=== PATIENT | female | born 1990 | race Caucasian/White ===

== ENCOUNTER → 2022-04-25 | Outpatient (CLI) | payer OTHER ==
[2022-04-25 18:34] LABS: HCT 33.7 % (37.2-46.3); HGB 10.7 g/dL (12.0-15.0); MCH 30.9 pg (27.0-32.0); MCHC 31.8 g/dL (32.0-37.0); MCV 97.4 fL (80.0-97.0); Mean Platelet Volume 11.2 fL (9.5-12.2); NRBC Per 100 WBC 0 /100 WBCS (0.0-0.0); Platelet Count 273 X 10*3/uL (140-440); RBC 3.46 X 10*6/uL (4.10-5.20); RDW 13.5 % (11.5-14.5); WBC 9.19 X 10*3/uL (4.50-10.00)
== END | disposition home or self-care (01) ==
LOC: LABWHC1 09:42
PROVIDERS: ATTEND Obstetrics & Gynecology Obstetrics
DX: Z36.9 Encounter for antenatal screening, unspecified (principal)
CPT/HCPCS: 36415; 82950; 85027

== ENCOUNTER → 2022-05-08 | Outpatient (CLI) | payer OTHER ==
[2022-05-08 11:53] LABS: Glucose 3 Hour, Gest 104 mg/dL
== END | disposition home or self-care (01) ==
LOC: LABWHC1 07:03
PROVIDERS: ATTEND Obstetrics & Gynecology Obstetrics
DX: O99.810 Abnormal glucose complicating pregnancy (principal); Z3A.00 Weeks of gestation of pregnancy not specified
CPT/HCPCS: 36415; 82951; 82952

== ENCOUNTER 2022-07-14 06:00 | Inpatient (IN) | payer OTHER ==
[2022-07-14] MEDS ORDERED: DINOPROSTONE 10 MG INSERT.ER VAGINAL ONE (16:31)
[2022-07-14] MEDS ORDERED: LACTATED RINGERS 1,000 ML IV SCH (16:45)
--- NOTE | 2022-07-14 17:30 | P.HPOB ---
History of Present Illness H&P Date: 07/14/22 Chief Complaint: IUP at 39-0/7 weeks This is a 32-year-old at 39-0/7 weeks, that presents to labor and delivery for induction of labor. She has been receiving routine care which has been essentially uncomplicated. Patient notes good movement denies con tractions loss of fluid or vaginal bleeding. 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 Her blood type is A+, rubella status non immune, HBsAg negative, RPR is NR. negative M21, negative GBS. Review of Systems Constitutional: Denies chills, Denies fatigue, Denies fever Ears, nose, mouth and throat: Denies headache Cardiovascular: Reports leg edema Respiratory: Denies dyspnea Gastrointestinal: Denies constipation, Denies diarrhea, Denies nausea, Denies vomiting Genitourinary: Reports Past Medical History Past Medical History: No Reported History History of Any Multi-Drug Resistant Organisms: None Reported Past Surgical History: No Surgical Hx Reported Past Anesthesia/Blood Transfusion Reactions: No Reported Reaction Past Psychological History: Depression Smoking Status: Former smoker Past Alcohol Use History: None Reported Past Drug Use History: None Reported - Past Family History Mother Family Medical History: Diabetes Mellitus Medications and Allergies Allergies Allergy/AdvReac Type Severity Reaction Status Date / Time No Known Allergies Allergy Verified 07/14/22 16:30 Exam Osteopathic Statement: *. No significant issues noted on an osteopathic structural exam other than those noted in the History and Physical/Consult. 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 heart tones returned be category 1 and she is yue irregularly. Assessment and Plan (1) Term Current Visit: Yes Status: Acute Code(s): Z34.90 - ENCNTR FOR SUPRVSN OF NORMAL , UNSP, UNSP TRIMESTER SNOMED Code(s): 92260638 Plan: 32-year-old at 39-0/7 weeks that presents for induction of labor. Patient is admitted and Cervidil is placed without difficulty. We'll plan to remove the Cervidil around 5 AM, allow patient to have a late breakfast and start Pitocin. Patient is aware plan of care and all questions are answered. Should patient become uncomfortable she may decide between Stadol/nitrous/epidural for pain control. Should patient have noted cervical change epidural can be offered. Patient will consider.
[2022-07-14 17:31] LABS: Basophils % (A) 0 %; Eosinophils # (A) 0.2 k/uL (0-0.7); Eosinophils % (A) 2 %; HCT 33.5 % (34.0-46.0); HGB 11.5 gm/dL (11.4-16.0); Lymphocytes # (A) 1.9 k/uL (1.0-4.8); Lymphocytes % (A) 19 %; MCHC 34.2 g/dL (31.0-37.0); MCV 90.7 fL (80.0-100.0); Mean Platelet Volume 9.4; Monocytes # (A) 0.5 k/uL (0-1.0); Monocytes % (A) 5 %; Neutrophils # (A) 6.9 k/uL (1.3-7.7); Neutrophils % (A) 70 %; Platelet Count 240 k/uL (150-450); RDW 14.6 % (11.5-15.5); WBC 9.8 k/uL (3.8-10.6)
[2022-07-15] MEDS: BUTORPHANOL 1 MG/ML 1 ML VIAL IV PRN ×3 (01:32→10:10)
[2022-07-15] MEDS ORDERED: LIDOCAINE 0.5% (PF) 5 MG/ML (50 ML SDV) SQ PRN (05:28)
[2022-07-15] MEDS ORDERED: TERBUTALINE 1 MG/ML VIAL SQ PRN (05:28)
[2022-07-15] MEDS ORDERED: OXYTOCIN 30 UNITS/500 ML NS 30 UNIT in SALINE 1 500ML.BAG IV SCH (05:30)
[2022-07-15] MEDS: LACTATED RINGERS 1,000 ML IV SCH ×4 (05:54→18:33)
[2022-07-15] MEDS ORDERED: SODIUM CHLORIDE 0.9% 100 ML BAG ONE (13:21)
[2022-07-15] MEDS ORDERED: ROPIVACAINE 5 MG/ML 20 ML AMPULE ONE (13:21)
[2022-07-15] MEDS ORDERED: fentaNYL (PF) 50 MCG/ML 5 ML AMP ONE (13:21)
[2022-07-15] MEDS ORDERED: ROPIVACAINE 100 MG, fentaNYL (PF). 200 MCG in SODIUM CHLORIDE 0.9% 76 ML EPIDURAL ONE (14:13)
--- NOTE | 2022-07-15 14:13 | P.ANPRN ---
Procedure Note - Anesthesia - Epidural/Spinal Epidural Date of Procedure: 07/15/22 Procedure Start Time: 13:40 Procedure Stop Time: 13:53 Indication: Requested by Surgeon Sedation Type: Awake Preparation: Sterile Prep Position: Sitting Needle Guage: 18 Injectate: Lidocaine 1.5% with epi, negative response Blood Aspirated: No Pain Paresthesia on Injection Noted: No Events: Other (see comment) (OB epidural)
[2022-07-16] MEDS ORDERED: METHYLERGONOVINE 0.2 MG/ML 1 ML AMP IM ONE (00:08)
[2022-07-16] MEDS: BUTORPHANOL 1 MG/ML 1 ML VIAL IV PRN (00:11)
[2022-07-16] MEDS ORDERED: miSOPROStoL 200 MCG TAB PO STA (00:14)
[2022-07-16] MEDS ORDERED: diphenhydrAMINE 50 MG/ML 1 ML VIAL IVP PRN ×2 (00:23)
[2022-07-16] MEDS ORDERED: diphenhydrAMINE 25 MG CAP PO PRN (00:23)
[2022-07-16] MEDS ORDERED: BENZOCAINE/MENTHOL SPRAY 1 GM/SPRAY AEROSOL TOPICAL PRN (00:23)
[2022-07-16] MEDS ORDERED: ZOLPIDEM 5 MG TAB PO PRN (00:23)
[2022-07-16] MEDS ORDERED: SIMETHICONE 80 MG CHEWABLE PO PRN (00:23)
[2022-07-16] MEDS ORDERED: ACETAMINOPHEN TAB 325 MG TAB PO PRN (00:23)
[2022-07-16] MEDS ORDERED: diphenhydrAMINE 50 MG CAP PO PRN (00:23)
[2022-07-16] MEDS ORDERED: HYDROCORTISONE 2.5% RECTAL CREAM 30 GM TUBE RECTAL PRN (00:23)
[2022-07-16] MEDS ORDERED: LANOLIN CREAM 5 GM TUBE TOPICAL PRN (00:23)
--- NOTE | 2022-07-16 00:30 | P.PROBDLV ---
Vaginal Delivery Note - . Vaginal Delivery Note: Findings: Viable female delivered at 0001, weight of 8 lbs. 1 oz., 3660 g, Apgars of 8 and 9 at one and 5 minutes respectively. This is a 32-year-old at 39-0/7 weeks that presents to labor and delivery for induction of labor. Patient was admitted on 07/14 for Cervidil induction of labor. Patient made slow progress through the night eventually the Cervidil was removed around 5 AM with minimal cervical change appreciated. Pitocin augmentation of labor was begun and amniotomy was performed. Patient made slow progress through labor eventually becoming uncomfortable and requesting epidural placement. Patient made progress in labor eventually progressing to complete. Patient was placed in a modified lithotomy position and began pushing. With good maternal effort patient brought the down to a presentation, with additional pushes she delivered the head followed by the anterior/posterior shoulder and body. Spontaneous cry was noted at . The baby was placed on the maternal abdomen. The umbilical cord was doubly clamped and cut. The consent was delivered spontaneously intact with a three- vessel cord being noted. The uterus is noted to be atonic therefore Methergine was given. Bleeding slowed slightly. Cytotec was then placed rectally. Uterus was then noted to be firm and 2 below the umbilicus. On inspection the patient's vaginal vault a first-degree midline laceration was appreciated this was repaired in usual fashion with 3-0 repeat after instillation with lidocaine. Uterus once again was noted to be firm and below the umbilicus. Bladder had been drained just after delivery for approximately 100 mL of clear yellow urine. All counts were noted be correct 2. Patient infant tolerated delivery well and are resting comfortably.
[2022-07-16] MEDS: OXYTOCIN 30 UNITS/500 ML NS 30 UNIT in SALINE 1 500ML.BAG IV SCH ×2 (00:34→00:44)
[2022-07-16] MEDS: IBUPROFEN 600 MG TAB PO SCH ×4 (03:02→20:16)
[2022-07-16] MEDS: SENNOSIDES-DOCUSATE SODIUM 1 EACH TAB PO SCH ×2 (09:08→21:22)
[2022-07-17] MEDS: IBUPROFEN 600 MG TAB PO SCH ×2 (00:32→07:32)
[2022-07-17] MEDS: SENNOSIDES-DOCUSATE SODIUM 1 EACH TAB PO SCH (07:33)
[2022-07-17 08:04] VITALS: BP 108/71; PULSE 90; RESP 16; TEMP 98.2
--- NOTE | 2022-07-17 08:48 | P.DS ---
Providers Date of admission: 07/14/22 15:53 Expected date of discharge: 07/17/22 Attending physician: Patricia García Primary care physician: Stated None - Discharge Diagnosis(es) (1) Term Current Visit: Yes Status: Acute (2) Status post normal vaginal delivery Current Visit: Yes Status: Acute (3) hemorrhage Current Visit: Yes Status: Acute (4) First degree perineal laceration during delivery Current Visit: Yes Status: Acute Hospital Course: 32-year-old G1 now P1 presented to labor and delivery at 39-0/7 weeks for induction of labor. Patient was admitted for Cervidil induction of labor. Patient patient made slow progress through the night and Cervidil was removed in the morning. Augmentation of labor was begun with Pitocin. Amniotomy is performed and clear fluid was obtained. Patient continued to make slow progress to the day eventually becoming uncomfortable and requesting epidural placement. Patient eventually progressed to complete and began pushing with excellent maternal effort patient had a normal spontaneous vaginal delivery of a viable female at 0001, weight of 8 lbs. 1 oz., Apgars of 8 and 9 at one and 5 minutes respectively. Patient did have a hemorrhage and was given Methergine and Cytotec. Bleeding slowed after Cytotec was placed. Bleeding has been good since delivery. Patient is breast-feeding. Patient states her pain is well-controlled. She is doing well on this day #1. Would like discharge home. Patient Condition at Discharge: Good Plan - Discharge Summary Follow up Appointment(s)/Referral(s): Patricia García DO [Doctor of Osteopathic Medicine] - 4 Weeks Patient Instructions/Handouts: Vaginal Delivery (GEN), Vaginal Delivery (DC) Activity/Diet/Wound Care/Special Instructions: No tub baths or intercourse until 6 weeks . Patient recovered routine check at 4 weeks. Should patient have any concerns prior to this appointment she is urged to call the office and be seen sooner. Discharge Disposition: HOME SELF-CARE
[2022-07-17] MEDS ORDERED: MEASLES-MUMPS-RUBELLA VACC/PF 12,500 UNIT/0.5 ML VIAL SQ ONE (10:17)
== END 2022-07-17 11:05 | disposition home or self-care (01) | DRG 806 ==
LOC: 4FBP 15:53
PROVIDERS: ADMIT Obstetrics & Gynecology Obstetrics; ATTEND Obstetrics & Gynecology Obstetrics
PROC: 10E0XZZ Delivery of Products of Conception, External Approach (ICD-10-PCS; principal; 2022-07-16)
PROC: 0HQ9XZZ Repair Perineum Skin, External Approach (ICD-10-PCS; 2022-07-16)
PROC: 10907ZC Drainage of Amniotic Fluid, Therapeutic from Products of Conception, Via Natural or Artificial Opening (ICD-10-PCS; 2022-07-16)
PROC: 3E0P7VZ Introduction of Hormone into Female Reproductive, Via Natural or Artificial Opening (ICD-10-PCS; 2022-07-16)
PROC: 3E033VJ Introduction of Other Hormone into Peripheral Vein, Percutaneous Approach (ICD-10-PCS; 2022-07-16)
PROC: 3E0DXGC Introduction of Other Therapeutic Substance into Mouth and Pharynx, External Approach (ICD-10-PCS; 2022-07-16)
DX: O70.0 First degree perineal laceration during delivery (principal); O72.1 Other immediate postpartum hemorrhage; Z37.0 Single live birth; O99.344 Other mental disorders complicating childbirth; F32.A Depression, unspecified; Z3A.39 39 weeks gestation of pregnancy; Z87.891 Personal history of nicotine dependence
CPT/HCPCS: 85025; 86850; 86900; 86901; 90707

== ENCOUNTER 2024-10-19 10:49 | Emergency (ER) | payer OTHER ==
[2024-10-19 11:04] VITALS: TEMP 98
--- NOTE | 2024-10-19 11:05 | ED ---
SOB HPI - General Source: patient Mode of arrival: ambulatory Limitations: no limitations <Denae King - Last Filed: 10/19/24 11:04> - General Source: patient, RN notes reviewed <Dominga Hendricks - Last Filed: 10/19/24 17:01> - General Chief Complaint: Shortness of Breath Stated Complaint: SOB, 37 wks Time Seen by Provider: 10/19/24 11:05 - History of Present Illness Initial Comments: 34-year-old female at 37 weeks gestation presenting for shortness of breath since this morning. States she woke up this morning and has intermittently felt like she cannot catch her breath. Also reports intermittent high heart rate associated with this. Endorses some lightheadedness today as well. States she has had similar symptoms previously in her . States she has been battling high heart rate in and saw Dr. Jones who told her she had tachycardia but was not going to treat it as she is currently . Follows with OB Dr. García. Denies cough, hemoptysis, unilateral leg swelling. No other issues so far in her . (Dominga Hendricks) - Related Data Allergies Allergy/AdvReac Type Severity Reaction Status Date / Time No Known Allergies Allergy Verified 10/19/24 11:04 Review of Systems ROS Other: All systems not noted in ROS Statement are negative. <Denae King - Last Filed: 10/19/24 11:04> ROS Other: All systems not noted in ROS Statement are negative. <Dominga Hendricks - Last Filed: 10/19/24 17:01> ROS Statement: Those systems with pertinent positive or pertinent negative responses have been documented in the HPI. Past Medical History Past Medical History: No Reported History History of Any Multi-Drug Resistant Organisms: None Reported Past Surgical History: No Surgical Hx Reported Past Anesthesia/Blood Transfusion Reactions: No Reported Reaction Past Psychological History: Depression Smoking Status: Former smoker Past Alcohol Use History: None Reported Past Drug Use History: None Reported - Past Family History Mother Family Medical History: Diabetes Mellitus <Denae King - Last Filed: 10/19/24 11:04> General Exam Limitations: no limitations <Denae King - Last Filed: 10/19/24 11:04> General appearance: alert, in no apparent distress Head exam: Present: atraumatic, normocephalic, normal inspection Eye exam: Present: normal appearance, PERRL, EOMI. Absent: scleral icterus, conjunctival injection, periorbital swelling ENT exam: Present: normal exam, mucous membranes moist Respiratory exam: Present: normal lung sounds bilaterally. Absent: respiratory distress, wheezes, rales, rhonchi, stridor Cardiovascular Exam: Present: normal rhythm, tachycardia, normal heart sounds. Absent: systolic murmur, diastolic murmur, rubs, gallop, clicks Neurological exam: Present: alert, oriented X3 Psychiatric exam: Present: normal affect, normal mood Skin exam: Present: warm, dry, intact, normal color. Absent: rash <Dominga Hendricks - Last Filed: 10/19/24 17:01> Course Vital Signs 10/19/24 10/19/24 10/19/24 10:59 11:49 14:45 Temperature 98.0 F Pulse Rate 115 H 114 H 106 H Respiratory 22 18 18 Rate Blood Pressure 135/87 111/74 113/71 O2 Sat by Pulse 98 97 97 Oximetry Medical Decision Making - Lab Data Result diagrams: 10/19/24 12:12 10/19/24 12:12 - EKG Data -: EKG Interpreted by Me <Dominga Hendricks - Last Filed: 10/19/24 17:01> - Medical Decision Making Was pt. sent in by a medical professional or institution ([facility]UI[facility] Bose, LAC[employer] PIN PRESS OPERATOR, urgent care, hospital, or shelter...) When possible be specific @ -No Did you speak to anyone other than the patient for history (EMS, parent, family, police, friend...)? What history was obtained from this source @ -No Did you review nursing and triage notes (agree or disagree)? Why? @ -I reviewed and agree with nursing and triage notes Were old charts reviewed (outside hosp., previous admission, EMS record, old EKG, old radiological studies, urgent care reports/EKG's, shelter records)? Report findings @ -No old charts were reviewed Differential Diagnosis (chest pain, altered mental status, abdominal pain women, abdominal pain men, vaginal bleeding, weakness, fever, dyspnea, syncope, headache, dizziness, GI bleed, back pain, seizure, CVA, palpatations, mental health, musculoskeletal)? @ -Differential Dyspnea: Coronary syndrome, arrhythmia, tamponade, asthma, COPD, pulmonary embolism, pneumonia, pneumothorax, pulmonary effusion, anaphylaxis, diabetic ketoacidosis, flailed chest, pulmonary contusion, diaphragmatic rupture, anemia, neuromuscular, this is not meant to be an all-inclusive list. EKG interpreted by me (3pts min.). @ -As above X-rays interpreted by me (1pt min.). @ -None done CT interpreted by me (1pt min.). @ -CT angio chest negative for PE U/S interpreted by me (1pt. min.). @ -None done What testing was considered but not performed or refused? (CT, X-rays, U/S, labs)? Why? @ -None What meds were considered but not given or refused? Why? @ -None Did you discuss the management of the patient with other professionals (professionals i.e. , PA, LAC[employer]ER PIN PRESS OPERATOR, lab, RT, psych nurse, social worker psychiatric, area supervisor, teacher, special forces officer, counseling case manager)? Give summary @ -No Was smoking cessation discussed for >3mins.? @ -No Was critical care preformed (if so, how long)? @ -No Were there social determinants of health that impacted care today? How? (Homelessness, low income, unemployed, alcoholism, drug addiction, transportation, low edu. Level, literacy, decrease access to med. care, alf, rehab)? @ -No Was there de-escalation of care discussed even if they declined (Discuss DNR or withdrawal of care, Hospice)? DNR status @ -No What co-morbidities impacted this encounter? (DM, HTN, Smoking, COPD, CAD, Cancer, CVA, ARF, Chemo, Hep., AIDS, mental health diagnosis, sleep apnea, morbid obesity)? @ -None Was patient admitted / discharged? Hospital course, mention meds given and route, prescriptions, significant lab abnormalities, going to OR and other pertinent info. @ - discharge 34-year-old female at approximately 37 weeks gestation presenting for shortness of breath x 1 day. Patient is tachycardic, other vital signs within acceptable limits. Patient does appear mildly tachypneic but is overall well-appearing. Heart and lungs clear to auscultation bilaterally. No lower extremity edema. Lab work remarkable for D-dimer 1.34, white blood cell count 10. Urinalysis reveals trace protein. Due to tachycardia, dyspnea, and elevated D-dimer, CT angio chest performed to rule out PE. Risks versus benefits of this test was discussed in detail with patient and patient shows understanding and agrees. CT angio chest was negative for PE. Upon reevaluation, patient reports improvement of symptoms and feels stable for discharge. Advised to follow-up with OB tomorrow. Appropriate return pre cautions discussed. Case was discussed with my ED attending Dr. Partida. Undiagnosed new problem with uncertain prognosis? @ -No Drug Therapy requiring intensive monitoring for toxicity (Heparin, Nitro, Insulin, Cardizem)? @ -No Were any procedures done? @ -No Diagnosis/symptom? @ -Shortness of breath during Acute, or Chronic, or Acute on Chronic? @ -Acute Uncomplicated (without systemic symptoms) or Complicated (systemic symptoms)? @ -Complicated Side effects of treatment? @ -No Exacerbation, Progression, or Severe Exacerbation? @ -No Poses a threat to life or bodily function? How? (Chest pain, [place], DE, pneumonia, PE, COPD, DKA, ARF, appy, cholecystitis, CVA, Diverticulitis, Homicidal, Suicidal, threat to staff... and all critical care pts) @ -Not at this time (Dominga Hendricks) - Lab Data Lab Results 10/19/24 10/19/24 10/19/24 Range/Units 11:46 12:12 12:12 WBC 10.14 H (4.50-10.00) 10*3/uL RBC 3.67 L (4.10-5.20) 10*6/uL Hgb 11.4 L (12.0-15.0) g/dL Hct 33.8 L (37.2-46.3) % MCV 92.1 (80.0-97.0) fL MCH 31.1 (27.0-32.0) pg MCHC 33.7 (32.0-37.0) g/dL Plt Count 229 (140-440) 10*3/uL MPV 10.6 (9.5-12.2) fL Immature Gran % (Auto) 0.8 % Neutrophils % 72.1 % Lymphocytes % 18.0 % Monocytes % 7.1 % Eosinophils % 1.7 % Basophils % 0.3 % Immature Gran # 0.08 H (0.00-0.04) 10*3/uL Neutrophils # 7.31 (1.80-7.70) 10*3/uL Lymphocytes # 1.83 (0.90-5.00) 10*3/uL Monocytes # 0.72 (0.20-1.00) 10*3/uL Eosinophils # 0.17 (0.04-0.35) 10*3/uL Basophils # 0.03 (0.00-0.10) 10*3/uL D-Dimer (<0.60) mg/L FEU Sodium 134 L (137-145) mmol/L Potassium 4.1 (3.5-5.1) mmol/L Chloride 108 H (98-107) mmol/L Carbon Dioxide 17 L (22-30) mmol/L Anion Gap 9 mmol/L BUN 7 (7-17) mg/dL Creatinine 0.43 L (0.52-1.04) mg/dL Est GFR (CKD-EPI)AfAm >90 (>60 ml/min/1.73 sqM) Est GFR (CKD-EPI)NonAf >90 (>60 ml/min/1.73 sqM) Glucose 116 H (74-99) mg/dL Calcium 8.8 (8.4-10.2) mg/dL Total Bilirubin 0.2 (0.2-1.3) mg/dL AST 15 (14-36) U/L ALT 12 (4-34) U/L Alkaline Phosphatase 103 (38-126) U/L Total Protein 5.7 L (6.3-8.2) g/dL Albumin 3.2 L (3.5-5.0) g/dL Urine Color Yellow Urine Appearance Cloudy H (Clear) Urine pH 6.5 (5.0-8.0) Ur Specific Ambrose 1.025 (1.001-1.035) Urine Protein Trace H (Negative) Urine Glucose (UA) Negative (Negative) Urine Ketones Negative (Negative) Urine Blood Negative (Negative) Urine Nitrite Negative (Negative) Urine Bilirubin Negative (Negative) Urine Urobilinogen <2.0 (<2.0) mg/dL Ur Leukocyte Esterase Trace H (Negative) Urine RBC 1 (0-5) /hpf Urine WBC 4 (0-5) /hpf Ur Squamous Epith Cells 9 H (0-4) /hpf Urine Mucus Rare H (None) /hpf Influenza Type A (PCR) (Not Detectd) Influenza Type B (PCR) (Not Detectd) RSV (PCR) (Not Detectd) SARS-CoV-2 (PCR) (Not Detectd) 10/19/24 10/19/24 Range/Units 12:12 13:29 WBC (4.50-10.00) 10*3/uL RBC (4.10-5.20) 10*6/uL Hgb (12.0-15.0) g/dL Hct (37.2-46.3) % MCV (80.0-97.0) fL MCH (27.0-32.0) pg MCHC (32.0-37.0) g/dL Plt Count (140-440) 10*3/uL MPV (9.5-12.2) fL Immature Gran % (Auto) % Neutrophils % % Lymphocytes % % Monocytes % % Eosinophils % % Basophils % % Immature Gran # (0.00-0.04) 10*3/uL Neutrophils # (1.80-7.70) 10*3/uL Lymphocytes # (0.90-5.00) 10*3/uL Monocytes # (0.20-1.00) 10*3/uL Eosinophils # (0.04-0.35) 10*3/uL Basophils # (0.00-0.10) 10*3/uL D-Dimer 1.34 H (<0.60) mg/L FEU Sodium (137-145) mmol/L Potassium (3.5-5.1) mmol/L Chloride (98-107) mmol/L Carbon Dioxide (22-30) mmol/L Anion Gap mmol/L BUN (7-17) mg/dL Creatinine (0.52-1.04) mg/dL Est GFR (CKD-EPI)AfAm (>60 ml/min/1.73 sqM) Est GFR (CKD-EPI)NonAf (>60 ml/min/1.73 sqM) Glucose (74-99) mg/dL Calcium (8.4-10.2) mg/dL Total Bilirubin (0.2-1.3) mg/dL AST (14-36) U/L ALT (4-34) U/L Alkaline Phosphatase (38-126) U/L Total Protein (6.3-8.2) g/dL Albumin (3.5-5.0) g/dL Urine Color Urine Appearance (Clear) Urine pH (5.0-8.0) Ur Specific Ambrose (1.001-1.035) Urine Protein (Negative) Urine Glucose (UA) (Negative) Urine Ketones (Negative) Urine Blood (Negative) Urine Nitrite (Negative) Urine Bilirubin (Negative) Urine Urobilinogen (<2.0) mg/dL Ur Leukocyte Esterase (Negative) Urine RBC (0-5) /hpf Urine WBC (0-5) /hpf Ur Squamous Epith Cells (0-4) /hpf Urine Mucus (None) /hpf Influenza Type A (PCR) Not Detected (Not Detectd) Influenza Type B (PCR) Not Detected (Not Detectd) RSV (PCR) Not Detected (Not Detectd) SARS-CoV-2 (PCR) Not Detected (Not Detectd) - EKG Data EKG Comments: EKG reveals sinus tachycardia with no acute ST changes. Ventricular rate 109 bpm, ME interval 130, QRS duration 88, QT/QTc 327/391 (Dominga Hendricks) Disposition <Denae King - Last Filed: 10/19/24 11:04> Is patient prescribed a controlled substance at d/c from ED?: No Time of Disposition: 16:59 <Dominga Hendricks - Last Filed: 10/19/24 17:01> Clinical Impression: Shortness of breath during Disposition: HOME SELF-CARE Condition: Stable Additional Instructions: Follow-up with Dr. García tomorrow. Please return to the Emergency Department if symptoms worsen or any other concerns. Referrals: None,Stated [Primary Care Provider] - 1-2 days
[2024-10-19 12:00] LABS: Appearance,Urine Cloudy (Clear); Bilirubin,Urine Negative (Negative); Blood,Urine Negative (Negative); Color,Urine Yellow; Glucose,Urine (UA) Negative (Negative); Ketones,Urine Negative (Negative); Leukocyte Esterase,Urine Trace (Negative); Mucus,Urine Rare /hpf; Nitrite,Urine Negative (Negative); PH, Urine 6.5 (5.0-8.0); Protein,Urine Trace (Negative); RBC,Urine 1 /hpf (0-5); Specific Gravity,Urine 1.025 (1.001-1.035); Squamous Epithelial Cell,Urine 9 /hpf (0-4); Urobilinogen,Urine <2.0 mg/dL (<2.0); WBC,Urine 4 /hpf (0-5)
[2024-10-19 12:25] LABS: Basophils # (A) 0.03 10*3/uL (0.00-0.10); Basophils % (A) 0.3 %; Eosinophils # (A) 0.17 10*3/uL (0.04-0.35); Eosinophils % (A) 1.7 %; HCT 33.8 % (37.2-46.3); HGB 11.4 g/dL (12.0-15.0); Lymphocytes # (A) 1.83 10*3/uL (0.90-5.00); MCH 31.1 pg (27.0-32.0); MCHC 33.7 g/dL (32.0-37.0); MCV 92.1 fL (80.0-97.0); Mean Platelet Volume 10.6 fL (9.5-12.2); Monocytes # (A) 0.72 10*3/uL (0.20-1.00); Monocytes % (A) 7.1 %; Neutrophils # (A) 7.31 10*3/uL (1.80-7.70); Neutrophils % (A) 72.1 %; Platelet Count 229 10*3/uL (140-440); RBC 3.67 10*6/uL (4.10-5.20); RDW 14.6 % (11.5-14.5); WBC 10.14 10*3/uL (4.50-10.00)
[2024-10-19 12:40] LABS: ALT 12 U/L (4-34); AST 15 U/L (14-36); African American GFR (CKD) >90 (>60 ml/min/1.73 sqM); Albumin 3.2 g/dL (3.5-5.0); Alkaline Phosphatase 103 U/L (38-126); Anion Gap 9 mmol/L; Blood Urea Nitrogen 7 mg/dL (7-17); Calcium 8.8 mg/dL (8.4-10.2); Carbon Dioxide 17 mmol/L (22-30); Chloride 108 mmol/L (98-107); Glucose 116 mg/dL (74-99); Non-African American GFR(CKD) >90 (>60 ml/min/1.73 sqM); Potassium 4.1 mmol/L (3.5-5.1); Sodium 134 mmol/L (137-145); Total Bilirubin 0.2 mg/dL (0.2-1.3); Total Protein 5.7 g/dL (6.3-8.2)
[2024-10-19 14:22] LABS: Influenza A Not Detected (Not Detectd); Influenza B Not Detected (Not Detectd); RSV Not Detected (Not Detectd)
[2024-10-19 14:47] VITALS: RESP 18
--- NOTE | 2024-10-19 16:44 | CT ---
EXAMINATION TYPE: CT angio chest DATE OF EXAM: 10/19/2024 4:35 PM COMPARISON: None available. CLINICAL INDICATION: Female, 34 years old with history of shortness of breath, r/o PE; shy/elevated dimer TECHNIQUE/CONTRAST: CTA scan of the thorax is performed with IV Contrast, patient injected with 80 mL of Isovue 370, MIP images are created and reviewed these are created on a separate workstation.. CT DLP: 293.5 mGycm, Automated exposure control for dose reduction was used. FINDINGS: Pulmonary Artery: There is no evidence for a filling defect within the pulmonary vasculature to sugge st acute pulmonary embolism. The pulmonary artery is of normal size. Lungs/Pleura: No evidence of focal consolidation, pleural effusion or pneumothorax. Airway: Large airways are patent. Heart: Heart is within normal limits for size. Vasculature: No evidence of aortic aneurysm. Mediastinum: No gross evidence of adenopathy. Musculoskeletal: No acute osseous abnormalities Soft Tissues/lymph nodes: Unremarkable. Lower neck: No significant findings. Upper Abdomen: No significant acute acute findings. Small hernia. IMPRESSION: 1. No evidence of acute pulmonary embolism or acute pulmonary pathology. 2. Small hiatal hernia. [facility], , 10/19/2024 4:41 PM
[2024-10-19 17:27] VITALS: BP 116/74; PULSE 90
== END 2024-10-19 17:27 | disposition home or self-care (01) ==
LOC: EC 10:49
DX: O99.513 Diseases of the respiratory system complicating pregnancy, third trimester (principal); R06.02 Shortness of breath; Z87.891 Personal history of nicotine dependence; Z3A.37 37 weeks gestation of pregnancy
CPT/HCPCS: 36415; 93005; 85379; 80053; 85025; 81001; 87636; 71275; 99285; Q9967

== ENCOUNTER 2024-10-22 05:56 | Inpatient (IN) | payer OTHER ==
[2024-10-22] MEDS ORDERED: TRANEXAMIC 1,000 MG/100ML-NACL 1,000 MG in EMPTY BAG 1 BAG IV PRN (06:05)
[2024-10-22] MEDS ORDERED: miSOPROStoL 200 MCG TAB RECTAL PRN (06:05)
[2024-10-22] MEDS ORDERED: OXYTOCIN 10 UNIT/ML 1 ML VIAL IM PRN (06:05)
[2024-10-22] MEDS ORDERED: METHYLERGONOVINE 0.2 MG/ML 1 ML AMP IM PRN (06:05)
[2024-10-22] MEDS ORDERED: miSOPROStoL 200 MCG TAB PO PRN (06:05)
[2024-10-22] MEDS ORDERED: CARBOPROST TROMETHAMINE 250 MCG/ML 1 ML AMP IM PRN (06:05)
[2024-10-22] MEDS ORDERED: TERBUTALINE 1 MG/ML VIAL SQ PRN (06:05)
[2024-10-22] MEDS ORDERED: OXYTOCIN 30 UNITS/500 ML NS 30 UNIT in SALINE 1 500ML.BAG IV SCH (06:15)
[2024-10-22] MEDS: LACTATED RINGERS 1,000 ML IV SCH (06:24)
[2024-10-22] MEDS: OXYTOCIN 30 UNITS/500 ML NS 30 UNIT in SALINE 1 500ML.BAG IV SCH (06:25)
[2024-10-22 06:33] LABS: Basophils # (A) 0.05 10*3/uL (0.00-0.10); Basophils % (A) 0.5 %; Eosinophils # (A) 0.23 10*3/uL (0.04-0.35); Eosinophils % (A) 2.2 %; HCT 34.1 % (37.2-46.3); HGB 11.5 g/dL (12.0-15.0); Lymphocytes # (A) 1.96 10*3/uL (0.90-5.00); Lymphocytes % (A) 18.6 %; MCH 31.1 pg (27.0-32.0); MCHC 33.7 g/dL (32.0-37.0); MCV 92.2 fL (80.0-97.0); Mean Platelet Volume 10.7 fL (9.5-12.2); Monocytes # (A) 0.64 10*3/uL (0.20-1.00); Monocytes % (A) 6.1 %; Neutrophils # (A) 7.56 10*3/uL (1.80-7.70); Neutrophils % (A) 71.5 %; Platelet Count 243 10*3/uL (140-440); RDW 14.8 % (11.5-14.5); WBC 10.56 10*3/uL (4.50-10.00)
[2024-10-22] MEDS ORDERED: SODIUM CHLORIDE 0.9% 250 ML BAG ONE (12:42)
[2024-10-22] MEDS ORDERED: ROPIVACAINE 5 MG/ML 30 ML VIAL ONE (12:42)
[2024-10-22] MEDS ORDERED: fentaNYL (PF) 50 MCG/ML 5 ML AMP ONE (12:42)
[2024-10-22 12:46] LABS: ALT 13 U/L (4-34); AST 17 U/L (14-36); African American GFR (CKD) >90 (>60 ml/min/1.73 sqM); Blood Urea Nitrogen 12 mg/dL (7-17); LDH 148 U/L (120-246); Magnesium 1.6 mg/dL (1.6-2.3); Non-African American GFR(CKD) >90 (>60 ml/min/1.73 sqM); Uric Acid 3.1 mg/dL (3.7-7.4)
[2024-10-22 15:06] LABS: INR 0.9 (<1.2); Partial Thromboplastin Time 22.8 sec (22.0-30.0); Prothrombin Time 9.9 sec (10.0-12.5)
--- NOTE | 2024-10-22 15:13 | P.HPOB ---
History of Present Illness H&P Date: 10/22/24 Chief Complaint: IOL Patient is a 34-year-old female at 373/7 weeks presenting for induction of labor due to gestational hypertension. LENY of 11/09/2024 by LMP confirmed with first trimester ultrasound. She has received routine care. has been complicated by gestational hypertension. She reports good movement. Denies fever/chills, headache, visual changes, chest pain, dyspnea, vaginal bleeding, leakage of fluid. Pertinent labs: Blood type A+, antibody screen negative, GBS negative, rubella immune, RPR nonreactive, HepBsAg negative, Hep C nonreactive, HIV negative, gonorrhea negative, chlamydia negative, 1-hour GTT WNL Review of Systems ROS reviewed. Pertinent positives and negatives discussed above, a complete review of systems was performed and all the other systems were negative. Past Medical History Past Medical History: No Reported History History of Any Multi-Drug Resistant Organisms: None Reported Past Surgical History: No Surgical Hx Reported Past Anesthesia/Blood Transfusion Reactions: No Reported Reaction Past Psychological History: Depression Smoking Status: Former smoker Past Alcohol Use History: None Reported Past Drug Use History: None Reported - Past Family History Mother Family Medical History: Diabetes Mellitus Medications and Allergies Allergies Allergy/AdvReac Type Severity Reaction Status Date / Time No Known Allergies Allergy Verified 10/19/24 11:04 Exam Osteopathic Statement: *. No significant issues noted on an osteopathic structural exam other than those noted in the History and Physical/Consult. Vital Signs Temp Pulse Resp BP 10/22/24 06:10 96.7 F L 140 H 18 116/68 Intake and Output 10/21/24 10/22/24 10/22/24 22:59 06:59 14:59 Other: Weight 80.739 kg Vital signs are stable. General: No acute distress. Alert and oriented. Lungs: Nonlabored breathing. Abdomen: Gravid and appropriate for gestational age. Cervical exam: 2/50/high per attending, AROM, clear fluid. Extremities: Symmetric movement. Category 1 heart tones. Results Result Diagrams: 10/22/24 06:23 10/22/24 06:23 Abnormal Lab Results - Last 24 Hours (Table) 10/22/24 10/22/24 Range/Units 06:23 06:23 WBC 10.56 H (4.50-10.00) 10*3/uL RBC 3.70 L (4.10-5.20) 10*6/uL Hgb 11.5 L (12.0-15.0) g/dL Hct 34.1 L (37.2-46.3) % Immature Gran # 0.12 H (0.00-0.04) 10*3/uL Creatinine 0.45 L (0.52-1.04) mg/dL Uric Acid 3.1 L (3.7-7.4) mg/dL Assessment and Plan Assessment: Patient is a 34-year-old female at 37-3/7 weeks presenting for induction of labor due to gestational hypertension. (1) Encounter for induction of labor Current Visit: Yes Status: Acute Code(s): Z34.90 - ENCNTR FOR SUPRVSN OF NORMAL , UNSP, UNSP TRIMESTER SNOMED Code(s): 637121448 (2) Gestational hypertension Current Visit: Yes Status: Acute Code(s): O13.9 - GESTATIONAL HTN W/O SIGNIFICANT PROTEINURIA, UNSP TRIMESTER SNOMED Code(s): 31073422 (3) Term Current Visit: Yes Status: Acute Code(s): Z34.90 - ENCNTR FOR SUPRVSN OF NORMAL , UNSP, UNSP TRIMESTER SNOMED Code(s): 46683482 Plan: - Admit to [facility]BP - Proceed with induction of labor today - Pitocin per protocol - Analgesia with epidural per patient request - Continuous EFM and tocometer - Anticipate spontaneous vaginal delivery patient seen and examined by myself, agree with above documentation
[2024-10-22] MEDS: LIDOCAINE 0.5% (PF) 5 MG/ML (50 ML SDV) SQ PRN (18:06)
--- NOTE | 2024-10-22 18:16 | P.HPOB ---
History of Present Illness H&P Date: 10/22/24 Chief Complaint: IUP at 37-3/7 weeks, gestational hypertension 34-year-old G2, P1 at 37-3/7 weeks that presents to labor and delivery for induction of labor secondary to gestational hypertension. Patient was seen in the office yesterday noting blood pressures 150s over 90s, 140s over 90s. Patient states she was seen in the ER on Friday with complaints of shortness of breath elevated blood pressures were noted. Negative preeclampsia workup. Spiral CT done to rule out pulmonary embolism given shortness of breath. Patient has continued to feel unwell through the week. care has been complicated by diagnosis of anemia, and small for gestational age. Patient has a prior history of hemorrhage. This morning patient does note good movement denies vaginal bleeding or loss of fluid On blood work this patient is blood type of A+, rubella status immune, hepatitis B surface engine negative, HIV negative, RPR nonreactive, grew beta s trep culture negative. Review of Systems Constitutional: Denies chills, Denies fatigue, Denies fever Ears, nose, mouth and throat: Denies headache Cardiovascular: Reports leg edema Respiratory: Denies dyspnea Gastrointestinal: Denies constipation, Denies diarrhea, Denies nausea, Denies vomiting Genitourinary: Reports Past Medical History Past Medical History: No Reported History History of Any Multi-Drug Resistant Organisms: None Reported Past Surgical History: No Surgical Hx Reported Past Anesthesia/Blood Transfusion Reactions: No Reported Reaction Past Psychological History: Depression Smoking Status: Former smoker Past Alcohol Use History: None Reported Past Drug Use History: None Reported - Past Family History Mother Family Medical History: Diabetes Mellitus Medications and Allergies Allergies Allergy/AdvReac Type Severity Reaction Status Date / Time No Known Allergies Allergy Verified 10/19/24 11:04 Exam Osteopathic Statement: *. No significant issues noted on an osteopathic structural exam other than those noted in the History and Physical/Consult. Vital Signs Temp Pulse Resp BP 10/22/24 06:10 96.7 F L 140 H 18 116/68 Intake and Output 10/21/24 10/22/24 10/22/24 22:59 06:59 14:59 Other: Weight 80.739 kg Targeted physical exam is performed and the state in general is well-nourished well-developed female in no acute distress, breathing appears nonlabored, abdomen is noted to be gravid, on cervical exam she is 3/50/-3 station amniotomy is performed and scant fluid is obtained. heart tones are noted to be category 1 and she is yue every 3 to 4 minutes. Results Result Diagrams: 10/22/24 06:23 10/22/24 06:23 Abnormal Lab Results - Last 24 Hours (Table) 10/22/24 Range/Units 06:23 WBC 10.56 H (4.50-10.00) 10*3/uL RBC 3.70 L (4.10-5.20) 10*6/uL Hgb 11.5 L (12.0-15.0) g/dL Hct 34.1 L (37.2-46.3) % Immature Gran # 0.12 H (0.00-0.04) 10*3/uL Assessment and Plan (1) Gestational hypertension Current Visit: Yes Status: Acute Code(s): O13.9 - GESTATIONAL HTN W/O SIGNIFICANT PROTEINURIA, UNSP TRIMESTER SNOMED Code(s): 97536583 (2) Shortness of breath during Current Visit: No Status: Acute Code(s): O99.891 - OTH DISEASES AND CONDITIONS COMPLICATING ; R06.02 - SHORTNESS OF BREATH SNOMED Code(s): 417509680 (3) Term Current Visit: Yes Status: Acute Code(s): Z34.90 - ENCNTR FOR SUPRVSN OF NORMAL , UNSP, UNSP TRIMESTER SNOMED Code(s): 10590885 Plan: Admit to labor and delivery Pre-eclampsia labs upon admission Options for analgesia are discussed including Nubain, nitrous, epidural Anticipate spontaneous vaginal delivery
[2024-10-22] MEDS ORDERED: diphenhydrAMINE 50 MG CAP PO PRN (18:18)
[2024-10-22] MEDS ORDERED: diphenhydrAMINE 25 MG CAP PO PRN (18:18)
[2024-10-22] MEDS ORDERED: HYDROCORTISONE 2.5% RECTAL CREAM 30 GM TUBE RECTAL PRN (18:18)
[2024-10-22] MEDS ORDERED: SIMETHICONE 80 MG CHEWABLE PO PRN (18:18)
[2024-10-22] MEDS ORDERED: BENZOCAINE/MENTHOL SPRAY 1 GM/SPRAY AEROSOL TOPICAL PRN (18:18)
[2024-10-22] MEDS ORDERED: ZOLPIDEM 5 MG TAB PO PRN (18:18)
[2024-10-22] MEDS ORDERED: diphenhydrAMINE 50 MG/ML 1 ML VIAL IVP PRN ×2 (18:18)
[2024-10-22] MEDS ORDERED: LANOLIN CREAM 1 GM TUBE TOPICAL PRN (18:18)
--- NOTE | 2024-10-22 18:18 | P.PROBDLV ---
Vaginal Delivery Note - . Vaginal Delivery Note: Date of service 10/22/2024 Findings viable female delivered at 1802, weight of 7 pounds 7 ounces 34-year-old 2 para 1 presenting to labor and delivery at 37-3/7 weeks, estimated due date of 11/09 by good dating parameters for medical induction of labor secondary to gestational hypertension. Patient was admitted and Pitocin induction of labor has begun. Amniotomy was performed and clear fluid was obtained. Patient did become uncomfortable and request epidural during the labor process. Epidural was placed without difficulty by the anesthesia department. Patient made good progress for complete dilation once completely dilated she began pushing and had a normal spontaneous vaginal delivery with a viable female infant at 1802, weight of 7 pounds 7 ounces. After 2-minute delay the umbilical cord was doubly and cut, placenta was delivered spontaneously intact with a three-vessel cord being noted. Uterus was noted to be firm below the umbilicus. On inspection the patient's vaginal vault first-degree vaginal laceration was appreciated injected with lidocaine and repaired in the usual fashion with a [id number] suture of 3 0 Rapide. Patient and infant tolerated delivery well and are resting comfortably All counts were noted be correct x 2.
[2024-10-22] MEDS: SENNOSIDES-DOCUSATE SODIUM 1 EACH TAB PO SCH (19:18)
[2024-10-22 19:33] VITALS: RESP 16
[2024-10-22] MEDS: ACETAMINOPHEN TAB 500 MG TAB PO SCH (20:05)
[2024-10-23] MEDS: IBUPROFEN 800 MG TAB PO SCH (01:53)
--- NOTE | 2024-10-23 09:23 | P.DS ---
Providers Date of admission: 10/22/24 05:56 Expected date of discharge: 10/23/24 Attending physician: Patricia García Primary care physician: Stated None - Discharge Diagnosis(es) (1) Encounter for induction of labor Current Visit: Yes Status: Acute (2) Gestational hypertension Current Visit: Yes Status: Acute (3) Term Current Visit: Yes Status: Acute (4) First degree perineal laceration during delivery Current Visit: No Status: Acute (5) Status post normal vaginal delivery Current Visit: No Status: Acute Hospital Course: This is a 34-year-old 2 now para 2 that presented to labor and delivery on 10/22 for scheduled medical induction of labor. Patient had been receiving routine care with a new diagnosis of gestational hypertension. Patient was seen within the week for complaints of shortness of breath in the emergency department. Elevated blood pressure was appreciated. Patient was sent home ultimately. Patient presented for routine visit on 10/21 with elevated blood pressures 150s over 90s, 140s over 80s. Patient was admitted to labor and delivery and Pitocin induction of labor was begun. Patient made good progress through labor eventually becoming uncomfortable and requesting epidural. Patient made good progress toward complete dilation and began pushing and had a normal spontaneous vaginal delivery of a viable female infant at 1802, weight of 7 pounds 7 ounces. Patient did sustain a first-degree vaginal laceration during delivery. This was repaired in usual fashion with 3-0 Rapide. On this day #1 she is ambulating and voiding without difficulty. She is tolerating a regular diet without nausea or vomiting. States her pain is well-controlled. She denies concerns. She would like discharge home at 24 hours. Patient Condition at Discharge: Good Plan - Discharge Summary Follow up Appointment(s)/Referral(s): Patricia García DO [Doctor of Osteopathic Medicine] - 12/01/24 1:15 pm Patient Instructions/Handouts: Vaginal Delivery (DC), Vaginal Delivery (GEN) Activity/Diet/Wound Care/Special Instructions: No tub baths or intercourse until 6 weeks . [id number] ib uprofen 600 mg or 3 tablets every 6 hours as needed for pain. Routine PP visit in 6 weeks Discharge Disposition: HOME SELF-CARE
[2024-10-23 19:52] VITALS: BP 106/66; PULSE 83; TEMP 98.2
== END 2024-10-23 19:10 | disposition home or self-care (01) | DRG 807 ==
LOC: 4FBP 05:56
PROVIDERS: ADMIT Obstetrics & Gynecology Obstetrics; ATTEND Obstetrics & Gynecology Obstetrics
PROC: 10E0XZZ Delivery of Products of Conception, External Approach (ICD-10-PCS; principal; 2024-10-22)
PROC: 0HQ9XZZ Repair Perineum Skin, External Approach (ICD-10-PCS; 2024-10-22)
PROC: 3E033VJ Introduction of Other Hormone into Peripheral Vein, Percutaneous Approach (ICD-10-PCS; 2024-10-22)
DX: O13.4 Gestational [pregnancy-induced] hypertension without significant proteinuria, complicating childbirth (principal); Z37.0 Single live birth; O99.344 Other mental disorders complicating childbirth; F32.A Depression, unspecified; O12.14 Gestational proteinuria, complicating childbirth; O70.0 First degree perineal laceration during delivery; Z3A.37 37 weeks gestation of pregnancy; Z83.3 Family history of diabetes mellitus; Z87.891 Personal history of nicotine dependence
CPT/HCPCS: 82565; 83615; 83735; 84450; 84460; 84520; 84550; 85025; 85384; 85610; 85730; 86850; 86900; 86901